=== PATIENT | female | born 2000 | race American Indian/Alaskan Native ===

== ENCOUNTER 2021-08-02 16:51 | Emergency (ER) | payer SELFPAY ==
--- NOTE | 2021-08-02 17:43 | Emergency Department Report ---
ED Female HPI - General Chief complaint: Abdominal Pain Stated complaint: Abdominal Pain and Cramping Time Seen by Provider: 08/02/21 17:24 Source: patient Mode of arrival: Ambulatory Limitations: No Limitations - History of Present Illness Initial comments: 21 year old female presents to ED with complaints of severe pelvic pain and vaginal/rectal pressure. Patient states she has been having this pain off and on x1 year. She states it flared up today around 3pm. She states she has never seen a medical provider for her pain. She denies any vaginal rash, discharge, swelling, abnormal vag bleeding, diarrhea, or UTI symptoms. She states she is still virgin and has never had sexual intercourse. She states her last MC was june 2021. MD Complaint: pelvic pain, other (vaginal pain ) -: This afternoon - Related Data Previous Rx's Medication Instructions Recorded Last Taken Type Fluconazole [Diflucan TAB] 200 mg PO QDAY #2 tablet 08/02/21 Unknown Rx Ibuprofen [Motrin] 600 mg PO Q8H PRN #30 tablet 08/02/21 Unknown Rx Sulfamethoxazole/Trimethoprim 1 each PO BID #14 tablet 08/02/21 Unknown Rx [Bactrim DS TAB] Allergies Allergy/AdvReac Type Severity Reaction Status Date / Time No Known Allergies Allergy Unverified 08/02/21 16:54 ED Review of Systems ROS: Stated complaint: Abdominal Pain and Cramping Other details as noted in HPI Comment: All other systems reviewed and negative Constitutional: denies: chills, fever Eyes: denies: eye pain, eye discharge, vision change ENT: denies: ear pain, throat pain, dental pain, hearing loss, congestion Respiratory: denies: cough, shortness of breath, SOB with exertion, SOB at rest, wheezing Cardiovascular: denies: chest pain, palpitations Gastrointestinal: abdominal pain. denies: nausea, vomiting, diarrhea, constipation, hematemesis, melena, hematochezia Genitourinary: other (pelvic pain ). denies: urgency, dysuria, frequency, hematuria, discharge, abnormal menses, dyspareunia Musculoskeletal: denies: back pain, joint swelling, arthralgia Skin: denies: rash, lesions, change in color, change in hair/nails, pruritus Neurological: denies: headache, weakness, numbness, paresthesias, confusion, abnormal gait, vertigo Psychiatric: denies: anxiety, depression, auditory hallucinations, visual hallucinations, homicidal thoughts, suicidal thoughts Hematological/Lymphatic: denies: easy bleeding, easy bruising, swollen glands ED Past Medical Hx - Medications Home Medications: Home Medications Medication Instructions Recorded Confirmed Last Taken Type Fluconazole [Diflucan TAB] 200 mg PO QDAY #2 tablet 08/02/21 Unknown Rx Ibuprofen [Motrin] 600 mg PO Q8H PRN #30 tablet 08/02/21 Unknown Rx Sulfamethoxazole/Trimethoprim 1 each PO BID #14 tablet 08/02/21 Unknown Rx [Bactrim DS TAB] ED Physical Exam - General Limitations: No Limitations General appearance: alert, in no apparent distress - Head Head exam: Present: atraumatic, normocephalic, normal inspection - Eye Eye exam: Present: normal appearance, PERRL, EOMI Pupils: Present: normal accommodation - ENT ENT exam: Present: normal exam, mucous membranes moist, TM's normal bilaterally - Neck Neck exam: Present: normal inspection, full ROM - Respiratory Respiratory exam: Present: normal lung sounds bilaterally. Absent: respiratory distress, rales, rhonchi - Cardiovascular Cardiovascular Exam: Present: regular rate, normal rhythm, normal heart sounds - GI/Abdominal GI/Abdominal exam: Present: soft. Absent: distended, tenderness, guarding - External exam: Present: normal external exam, other (gang pusher) Speculum exam: Present: other (speculum exam not completed, patient still has part of her hymen and it was very uncomfortably for her. scant am of white d/c noted outside instroitus. ) Bi-manual exam: Present: other (no done due to patient discomfort and pain ) - Neurological Exam Neurological exam: Present: alert, oriented X3, CN II-XII intact, normal gait - Psychiatric Psychiatric exam: Present: normal affect, normal mood - Skin Skin exam: Present: intact ED Course Vital Signs 08/02/21 08/02/21 08/02/21 16:52 17:15 18:30 Temperature 98.2 F 98.1 F Pulse Rate 125 H 78 Respiratory 18 18 Rate Blood Pressure 101/68 92/69 [Right] O2 Sat by Pulse 95 Oximetry ED Medical Decision Making - Medical Decision Making 21 year old female presents to ED with complaints of severe pelvic pain and vaginal/rectal pressure. Patient states she has been having this pain off and on x1 year. She states it flared up today around 3pm. She states she has never seen a medical provider for her pain. She denies any vaginal rash, discharge, swelling, abnormal vag bleeding, diarrhea, or UTI symptoms. She states she is still virgin and has never had sexual intercourse. She states her last MC was june 2021. UA concerning for UTI with yeast. Attempted to do a pelvic exam but did have what appears to be partially intact hymen on exam, therefore making very uncomfortable and painful for patient so pelvic exam was not completed. She did have tenderness to palpation in the right and left inguinal areas, but no apparent swelling, mass or significant lymphadenopathy. External vaginal exam just showed scant amount of white discharge around the introitus, but no bleeding, no rash, no apparent signs of an abscess or cellulitis. Rectal exam was unremarkable. Transabdominal pelvic ultrasound was negative for anything acute. Abdominal exam was soft and nontender. Discussed all lab results with patient. After further questioning and discussion with patient, she revealed that the pain seems to occur sometimes before her menstrual cycle or during her menstrual cycles. Inform her she does have a UTI with a yeast infection on her labs, but the pain could be related to PMS. Patient will be given medication for her UTI and he is to infection but she also given referral to [facility] for fur ther evaluation. At this time there is no indication for any additional testing, or emergent specialist consult. Patient is not toxic, she is not ill- appearing and she is not in any significant distress. Vital signs are stable. Patient expressed understanding for instructions and agree with plan. Patient was stable at time of discharge. Critical care attestation.: If time is entered above; I have spent that time in minutes in the direct care of this critically ill patient, excluding procedure time. ED Disposition Clinical Impression: Pelvic pain, UTI (urinary tract infection), Yeast vaginitis Disposition: HOME / SELF CARE / HOMELESS Is pt being admited?: No Does the pt Need Aspirin: No Condition: Stable Instructions: Pelvic Pain, Female, [id number], Urinary Tract Infection, Adult, [id number], Abdominal Pain (ED) Additional Instructions: I recommend taking motrin as prescribed for pain. Take the bactrim as prescribed for UTI and take the diflucan as prescribed for yeast infection. I do recommend following up with OBGYN for further evaluation. If you do not have an OBGYN one will be provided to you on your discharge instructions. Return to ED if symptoms worsens or changes in anyway. Prescriptions: Sulfamethoxazole/Trimethoprim [Bactrim DS TAB] 1 each PO BID #14 tablet Fluconazole [Diflucan TAB] 200 mg PO QDAY #2 tablet Ibuprofen [Motrin] 600 mg PO Q8H PRN #30 tablet PRN Reason: Pain Referrals: [facility] [Provider [facility]] - 3-5 Days [facility] [Provider Group] - 3-5 Days Forms: Work/School Release Form(ED)
[2021-08-02] MEDS ORDERED: IBUPROFEN 600 MG TAB PO ONE (18:18)
[2021-08-02 18:31] VITALS: BP 92/69
[2021-08-02 18:44] LABS: Bacteria,Urine 4+ /HPF (Negative); Bilirubin,Urine NEG (Negative); Blood,Urine NEG (Negative); Color,Urine Amber (Yellow); Mucus,Urine 3+ /HPF
[2021-08-02 18:56] LABS: HCG Qualitative,Urine Negative (Negative)
--- NOTE | 2021-08-02 20:05 | Ultrasound Report ---
PELVIC ULTRASOUND INDICATION: pelvic pain COMPARISON: None pertinent available TECHNIQUE: Transabdominal FINDINGS: Uterus: Measures 5.9 x 2.7 x 4 cm. Endometrial stripe measures 8 mm. No uterine abnormalities are see n. Right ovary: Nonvisualized Left ovary: Measures 2.5 cm in length and shows no abnormalities. Blood flow is noted. No free fluid is seen. IMPRESSION: Negative study Signer Name: Luis Martin MD Signed: 08/02/2021 8:00 PM Workstation Name: [id number]
== END 2021-08-02 20:20 | disposition home or self-care (01) ==
LOC: ED 16:51
DX: N39.0 Urinary tract infection, site not specified (principal); N76.0 Acute vaginitis
CPT/HCPCS: 76856; 81001; 81025; 87086; 99284